=== PATIENT | female | born 1985 | race Caucasian/White ===

== ENCOUNTER 2022-12-22 19:15 | Emergency (ER) | payer OTHER ==
[2022-12-22 19:43] LABS: Bilirubin Negative (Negative); Blood, Urine Large (Negative); Clarity Slightly Cloudy (Clear); Glucose, Urine (Dipstick) Negative (Negative); Ketone, Urine Negative (Negative); Leukocyte Negative (Negative); Nitrite Negative (Negative); Pregnancy Test - Urine (BHCG) Negative (Negative); Protein, Urine (Dipstick) 30 mg/dL (Neg-Trace)
[2022-12-22 19:44] LABS: Bacteria/HPF Rare-Few HPF (None Seen); Mucous/LPF 1+ LPF (<2+); Pregu Control Background? CLEAR/WHITE (CLR/WHITE); Pregu Control Bar Appear? YES (CONTROL BAR); Squamous Epithelial 0-3 HPF (0-3); WBC/HPF 0-3 HPF (0-3)
[2022-12-22] MEDS ORDERED: Morphine 2 MG/ML VIAL ONE (19:52)
[2022-12-22] MEDS ORDERED: Morphine 4 MG/ML VIAL ONE (19:52)
[2022-12-22] MEDS ORDERED: Ondansetron PF 4 MG/2 ML Vial ONE (19:56)
[2022-12-22 19:59] LABS: #Basophils 0.1 thou/uL (0.0-0.2); #Lymphocytes 0.4 thou/uL (1.20-3.40); #Monocytes 0.3 thou/uL (0.11-0.59); #Neutrophils 8.9 thou/uL (1.40-6.50); %Basophils 0.8 % (0.0-1.0); %Eosinophils 0.4 % (0.0-10.0); %Lymphocytes 4.4 % (21.0-51.0); %Monocytes 3.2 % (0.0-10.0); %Neutrophils 91.1 % (42.0-75.0); Hemoglobin 9.2 g/dL (12.0-16.0); Mean Corpuscular HGB CONC 30.6 g/dL (32.0-36.0); Mean Corpuscular Volume 68.8 fl (78.0-98.0); Mean Platelet Volume 8.6 fL (7.4-10.4); Platelet Count 308 10x3/uL (130-400); RBC Distribution Width 16.4 % (11.5-14.5); Red Blood Cell (RBC) Count 4.37 mill/uL (4.20-5.40); White Blood Cell (WBC) Count 9.8 10x3/uL (4.8-10.8)
[2022-12-22 20:10] LABS: ALT (SGPT) 74 U/L (8-55); AST (SGOT) 52 U/L (5-34); Albumin 4.2 g/dL (3.5-5.0); Alkaline Phosphatase 97 U/L (40-110); Anion Gap 14 mmol/L (10-20); BUN (Urea Nitrogen) 11 mg/dL (7.0-18.7); Bilirubin, Total 0.6 mg/dL (0.2-1.2); Calc. Creatinine Clearance 0 mL/min (70-130); Calcium 8.8 mg/dL (7.8-10.44); Carbon Dioxide 23 mmol/L (22-29); Chloride 106 mmol/L (98-107); Estimated GFR 68; Globulin 3.6 g/dL (2.4-3.5); Glucose 191 mg/dL (70-105); Potassium 3.8 mmol/L (3.5-5.1); Protein, Total 7.8 g/dL (6.0-8.3); Sodium 139 mmol/L (136-145)
[2022-12-22] MEDS ORDERED: HYDROcodone/Acetaminophen 10/325 mg Tablet ONE (21:04)
[2022-12-22] MEDS ORDERED: Ketorolac Tromethamine 30 MG/ML VIAL ONE (21:04)
== END 2022-12-22 21:11 | disposition home or self-care (01) ==
LOC: BURERS 19:15
DX: N13.2 Hydronephrosis with renal and ureteral calculous obstruction (principal); I10 Essential (primary) hypertension
CPT/HCPCS: 74176; 80053; 81003; 81015; 81025; 83605; 85025; 96374; 96375; J1885; J2270; J2272; J2405